=== PATIENT | female | born 1985 | race Caucasian/White ===

== ENCOUNTER 2018-12-28 19:41 | Emergency (ER) | payer OTHER ==
[~2018-12-28] VITALS: Ht 170.2 cm; Wt 59.0 kg
[2018-12-28] MEDS ORDERED: [UNRECOGNIZED DRUG - OTHER] PO (19:50)
[2018-12-28] MEDS ORDERED: IRON 100 PLUS1 EACH PO (19:50)
== END 2018-12-28 22:00 | disposition home or self-care (01) ==
LOC: ED 19:41
DX: R56.9 Unspecified convulsions (principal); Z85.028 Personal history of other malignant neoplasm of stomach
CPT/HCPCS: 70450; 80053; 81001; 84703; 85025; 99285-25; G0480